=== PATIENT | male | born 1955 | race Caucasian/White ===

== ENCOUNTER 2019-01-10 10:25 | Emergency (ER) | payer BC ==
[2019-01-10 10:53] VITALS: RESP 18
--- NOTE | 2019-01-10 11:30 | ED ---
ENT HPI - General Chief complaint: ENT Stated complaint: Swallowed FB Time Seen by Provider: 01/10/19 10:56 Source: patient Mode of arrival: ambulatory Limitations: physical limitation - History of Present Illness Initial comments: Patient is a 63-year-old male presents emergency Department with a chief complaint of swallowing a temporary crown. Patient reports he received temporary crown at his dentist that dislodged last night and he swallowed it. Patient spoke with a dentist who suggested he come to the emergency department for imaging. Patient denies nausea, vomiting, chest pain or abdominal pain. Patient denies any discomfort. Patient denies hematochezia or melena. Patient denies any alleviating or aggravated impact. - Related Data Home Medications Medication Instructions Recorded Confirmed Ascorbic Acid [Vitamin C] 500 mg PO DAILY 01/10/19 01/10/19 Levothyroxine Sodium 88 mcg PO DAILY 01/10/19 01/10/19 Multivitamins, Thera [Multivitamin 1 tab PO DAILY 01/10/19 01/10/19 (formulary)] Super Beta Prostate 1 tab PO DAILY 01/10/19 01/10/19 Allergies Allergy/AdvReac Type Severity Reaction Status Date / Time Sulfa (Sulfonamide Allergy Rash/Hives Verified 01/10/19 11:19 Antibiotics) Review of Systems ROS Statement: Those systems with pertinent positive or pertinent negative responses have been documented in the HPI. ROS Other: All systems not noted in ROS Statement are negative. Past Medical History Past Medical History: No Reported History Additional Past Medical History / Comment(s): THROAT CANCER 2011 History of Any Multi-Drug Resistant Organisms: None Reported Additional Past Surgical History / Comment(s): KNEE. KIDNEY STONE. THROAT CA REMOVED Past Psychological History: No Psychological Hx Reported Smoking Status: Never smoker Past Alcohol Use History: None Reported Past Drug Use History: None Reported General Exam Limitations: no limitations General appearance: alert, in no apparent distress Head exam: Present: atraumatic, normocephalic, normal inspection Eye exam: Present: normal appearance, PERRL, EOMI Pupils: Present: normal accommodation ENT exam: Present: normal exam, mucous membranes moist, TM's normal bilaterally, normal external ear exam, other (No tonsillar enlargement or exudates. No uveal deviation.). Absent: normal oropharynx (Multiple dental caries. Temporary crown dislodged from tooth #22.) Neck exam: Present: normal inspection, tenderness Respiratory exam: Present: normal lung sounds bilaterally Cardiovascular Exam: Present: regular rate, normal rhythm, normal heart sounds Extremities exam: Present: normal inspection, full ROM Back exam: Present: normal inspection, full ROM Neurological exam: Present: alert, oriented X3 Psychiatric exam: Present: normal affect, normal mood Skin exam: Present: warm, intact, normal color Course Vital Signs 01/10/19 10:49 Temperature 97.8 F Pulse Rate 60 Respiratory 18 Rate Blood Pressure 159/83 O2 Sat by Pulse 99 Oximetry Medical Decision Making - Medical Decision Making Patient is 63-year-old male presenting to emergency Department with a chief complaint of swallowing a temporary crown. Chest x-ray is indicative of old granulomatous disease. At this point the foreign body could not be visualized on imaging either due to the material or that it is past the visual field of the x-ray and into the intestinal track. Patient advised that he will pass the foreign body with a bowel movement. Strict return parameters were thoroughly discussed the patient was understanding and agreeable. Patient was to follow with primary care. Case discussed with physician. Disposition Clinical Impression: Foreign body, swallowed Disposition: HOME SELF-CARE Condition: Stable Instructions (If sedation given, give patient instructions): Esophageal Foreign Body (ED), Foreign Body Ingestion (ED) Additional Instructions: Please follow with primary care. Please return to emergency department if symptoms worsen. Is patient prescribed a controlled substance at d/c from ED?: No Referrals: Brennen Hardwick DO [Primary Care Provider] - 1-2 days Time of Disposition: 13:35
--- NOTE | 2019-01-10 13:21 | XR ---
EXAMINATION TYPE: XR chest 2V DATE OF EXAM: 01/10/2019 COMPARISON: NONE HISTORY: Cough and pain, swallowed crown TECHNIQUE: Frontal and lateral views of the chest are obtained. FINDINGS: There is no focal air space opacity, pleural effusion, or pneumothorax seen. The cardiac silhouette size is within normal limits. Extensive bilateral calcifications likely represent old gra nulomatous disease. This likely scarring at the left lung apex. The osseous structures are intact, th ere is a spinal curvature.. IMPRESSION: Old granulomatous disease.
[2019-01-10 13:56] VITALS: BP 172/90; PULSE 56; TEMP 98.1
== END 2019-01-10 13:55 | disposition home or self-care (01) ==
LOC: EC 10:25
DX: T18.9XXA Foreign body of alimentary tract, part unspecified, initial encounter (principal); K02.9 Dental caries, unspecified; Z85.21 Personal history of malignant neoplasm of larynx; Z87.442 Personal history of urinary calculi; Z98.890 Other specified postprocedural states; Z79.890 Hormone replacement therapy; Z79.899 Other long term (current) drug therapy; Z88.2 Allergy status to sulfonamides; X58.XXXA Exposure to other specified factors, initial encounter
CPT/HCPCS: 71046; 99283

== ENCOUNTER → 2022-05-19 | Outpatient (CLI) | payer MEDICARE, OTHER ==
--- NOTE | 2022-05-19 15:55 | CT ---
EXAMINATION TYPE: CT heart w calcium score DATE OF EXAM: 05/19/2022 COMPARISON: HISTORY: Screening for cardiovascular disorder. 213.9 CT DLP: 67.20 mGycm Automated exposure control for dose reduction was used. CT CALCIUM SCORING Coronary calcium is a marker for plaque (fatty deposits) in a blood vessel or atherosclerosis (harden ing of the arteries). The presence and amount of calcium detected in a coronary artery by the CT sca n, indicates the presence and amount of atherosclerotic plaque. These calcium deposits appear years before the development of heart disease symptoms such as chest pain and shortness of breath. A calcium score is computed for each of the coronary arteries based upon the volume and density of th e calcium deposits. This can be referred to as your calcified plaque burden. It does not correspond directly to the percentage of narrowing in the artery but does correlate with the severity of the un derlying coronary atherosclerosis. PROCEDURE TECHNIQUE - Prospective Gating was used. Slice thickness: 3mm. Density threshold (HU): 130, Pixel threshold: 3, Algorithm: discrete. RESULTS Region: LM Calcium Score ([place]): 0 Volume (mm3): 0 Mass (g): 0 Region: RCA Calcium Score ([place]): 0 Volume (mm3): 0 Mass (g): 0 Region: LAD Calcium Score ([place]): 139.21 Volume (mm3): 108.7 Mass (g): 36.23 Region: CX Calcium Score ([place]): 0 Volume (mm3): 0 Mass (g): 0 Region: PDA Calcium Score ([place]): 0 Volume (mm3): 0 Mass (g): 0 Total: Calcium Score ([place]): 139.21 Volume (mm3): 108.7 Mass (g): 108.7 TOTAL CALCIUM SCORE: 139.21 IMPRESSION: Calcium Score: 139. This is all located within left anterior descending. Implication: Definite at least moderate atherosclerotic plaque present. Significant narrowing is pos sible. Risk of Coronary Artery Disease: Moderate IMPRESSIONS: 1. Moderate risk with significant narrowings possible. Consider additional cardiac workup. CALCIUM SCORE IMPLICATION RISK OF C ORONARY ARTERY DISEASE 0 No identifiable plaque Very low, generally less than 5% 1-10 Minimal identifiable plaque Very unlikely, less than 10% 11-100 Definite, at least mild atherosclerotic plaque Mild or m inimal coronary narrowings likely 101-400 Definite, at least moderate atherosclerotic plaque Mild coronary ar [place] disease highly likely, significant narrowing possible 401 or Higher Extensive atherosclerotic plaque High lik elihood of at least one significant coronary narrowing
== END | disposition home or self-care (01) ==
LOC: RADCTMAIN 14:40
PROVIDERS: ATTEND Internal Medicine Cardiovascular Disease
DX: E78.9 Disorder of lipoprotein metabolism, unspecified (principal); I25.10 Atherosclerotic heart disease of native coronary artery without angina pectoris
CPT/HCPCS: 75571